=== PATIENT | female | born 1955 | race Caucasian/White ===

== ENCOUNTER 2021-05-22 19:51 | Emergency (ER) | payer OTHER ==
--- NOTE | 2021-05-22 21:16 | ERPHSYRPT ---
- History of Present Illness Time Seen by Provider: 05/22/21 20:30 Source: patient Exam Limitations: no limitations Patient Subjective Stated Complaint: pt states "My dog was getting attacked by another dog and I tried to break it up and fell on my L arm" Triage Nursing Assessment: Pt ambulatory to bed from waiting room with no difficulties. pt alert and oriented x3, pt has ecchymosis located on L upper arm from previous fall 8 days ago. Pt denies blood thinners at this time. pt denies any other injuries. Physician History: Patient is a 65-year-old female who 8 days ago was breaking up a fight between her dog and 2 large dogs when she fell injuring her left arm. She has a large ecchymotic hematoma and she has pain and limited motion and weakness in the arm. She has not sought attention to this point. Occurred: days ago (8) Method of Injury: direct blow Quality: throbbing Severity of Pain-Max: moderate Severity of Pain-Current: moderate Extremities Pain Location: arm: left Modifying Factors: Improves With: movement Allergies/Adverse Reactions: Penicillins Allergy (Mild, Verified 05/22/21 20:14) shrimp Allergy (Mild, Verified 05/22/21 20:14) Home Medications: Lisinopril 10 mg [Zestril 10 MG] 10 mg PO 05/22/21 [History] Hx Tetanus, Diphtheria Vaccination/Date Given: No Hx Influenza Vaccination/Date Given: No Hx Pneumococcal Vaccination/Date Given: No Immunizations Up to Date: No Travel Risk - International Travel Have you traveled outside of the country in past 3 weeks: No - Coronavirus Screening Are you exhibiting any of the following symptoms?: No Close contact with a COVID-19 positive Pt in past 14-21 Days: No - Vaccine Status Have you recieved a Covid-19 vaccination: No - Review of Systems Constitutional: No Fever, No Chills Eyes: No Symptoms Ears, Nose, & Throat: No Symptoms Respiratory: No Cough, No Dyspnea Cardiac: No Chest Pain, No Edema, No Syncope Abdominal/Gastrointestinal: No Abdominal Pain, No Nausea, No Vomiting, No Diarrhea Genitourinary Symptoms: No Dysuria Musculoskeletal: No Back Pain, No Neck Pain Skin: No Rash Neurological: No Dizziness, No Focal Weakness, No Sensory Changes Psychological: No Symptoms Endocrine: No Symptoms All Other Systems: Reviewed and Negative - Past Medical History Cardiac History: Hypertension Psycho-Social History: Depression - Past Surgical History Past Surgical History: Yes Female Surgical History: Section Other Surgical History: R wrist - Social History Smoking Status: Never smoker Drug Use: none - Nursing Vital Signs Nursing Vital Signs: Initial Vital Signs Temperature 97.5 F 05/22/21 20:06 Pulse Rate 78 05/22/21 20:06 Respiratory Rate 16 05/22/21 20:06 Blood Pressure 117/88 05/22/21 20:06 O2 Sat by Pulse Oximetry 96 05/22/21 20:06 Pain Scale Pain Intensity 3 - Physical Exam General Appearance: alert Eyes, Ears, Nose, Throat Exam: moist mucous membranes Neck Exam: non-tender, supple Cardiovascular/Respiratory Exam: chest non-tender, normal breath sounds, regular rate/rhythm, no respiratory distress Abdominal Exam: non-tender, No guarding Back Exam: normal inspection, No vertebral tenderness Shoulder Exam: ecchymosis (There is a large ecchymotic area over the biceps), limited ROM (Left shoulder limited range of motion), soft tissue tenderness (Soft tissue tenderness is noted over the left shoulder.), swelling Elbow/Forearm Exam: normal inspection, non-tender Wrist Exam: normal inspection, non-tender Hand Exam: normal inspection, non-tender Neuro/Tendon Exam: normal sensation, normal motor functions Mental Status Exam: alert, oriented x 3, cooperative Skin Exam: normal color, warm, dry SpO2 Interpretation: normal SpO2: 96 O2 Delivery: Room Air - Course Nursing assessment & vital signs reviewed: Yes - Radiology Exams Shoulder X-ray Interpretation: Interpreted by me (Left shoulder negative) Humerus X-ray Interpretation: Interpreted by me (Left humerus negative) Ordered Tests: Active Orders 24 hr Category Date Time Status HUMERUS Stat Exams 05/22/21 20:19 Taken SHOULDER Stat Exams 05/22/21 20:19 Taken - Progress Progress: unchanged - Departure Departure Disposition: Home Clinical Impression: Soft tissue injury of left upper arm Condition: Stable Critical Care Time: No Referrals: KATERINE ESPINOZA NP [Primary Care Provider] - Follow up/PCP as directed Instructions: Contusion (DC) Prescriptions: Diclofenac Sodium 50 mg [Voltaren 50 mg] 50 mg PO TID 7 Days #21 cap
[2021-05-22 21:32] VITALS: BP 113/82; PULSE 68; O2SAT 98
--- NOTE | 2021-05-23 09:01 | XRAY ---
Indication: Pain and bruising following injury one week ago. Comparison: None 3 view left shoulder demonstrates minimally depressed fracture involving the superior lateral humeral head. Elsewhere incidental osteopenia, mild AC degenerative arthropathy, mild left base subsegmental atelectasis/scarring, moderate size hiatal hernia, and right perihilar calcified granulomas. Comment: Humeral head fracture not reported by interpreting ER clinician. Telephone report given to Dr. Pak at 0855 hours on May 23, 2021.
--- NOTE | 2021-05-23 09:03 | XRAY ---
Indication: Pain and bruising following injury one week ago. Comparison: None 2 view left humerus demonstrates minimally depressed fracture involving the superior lateral humeral head. Elsewhere incidental osteopenia, mild AC degenerative arthropathy, and moderate size hiatal hernia. Comment: Humeral head fracture not reported by interpreting ER clinician. Telephone report given to Dr. Pak at 0855 hours on May 23, 2021.
== END 2021-05-22 21:32 | disposition home or self-care (01) ==
LOC: ED 19:51
DX: S40.022A Contusion of left upper arm, initial encounter (principal); W18.30XA Fall on same level, unspecified, initial encounter; Y93.K9 Activity, other involving animal care; I10 Essential (primary) hypertension
CPT/HCPCS: 73030; 73060; 99284

== ENCOUNTER 2022-07-06 13:52 | Emergency (ER) | payer MEDICARE ==
[2022-07-06] MEDS ORDERED: BABY ASPIRIN 81 MG CHEW PO ONE (14:13)
[2022-07-06] MEDS ORDERED: Sodium Chloride 0.9% 1000 ML 1,000 ML IV STA (14:13)
[2022-07-06] MEDS ORDERED: solu-MEDROL 125 MG, Sterile H2O 10 ml 2 ML IV ONE ×2 (14:16)
[2022-07-06] MEDS ORDERED: PROVENTIL 2.5 MG/3 ML NEB IH ONE ×2 (14:16→14:19)
[2022-07-06 14:19] LABS: Absolute Neutrophil Ct (ANC) 3.63 x10^3/uL (1.4-6.9); Basophil (Absolute #) 0 x10^3/uL (0-0.4); Eosinophil (Absolute #) 0 x10^3/uL (0-0.5); Hematocrit 39.6 % (35-47); Hemoglobin 13.8 g/dL (12.0-16.0); IMMATURE GRAN # 0.01 x10^3u/L (0.00-0.03); IMMATURE GRAN % 0.2 % (0.00-0.4); Lymphocyte (Absolute #) 1.76 x10^3/uL (1.0-4.6); Lymphocytes % 30.3 % (24.0-44.0); Mean Cell Volume 88.2 fL (78-100); Mean Corpuscular Hemoglobin 30.7 pg (26-32); Mean Corpuscular Hgb Concent. 34.8 g/dL (32-36); Mean Platelet Volume 9.2 fL (7.5-11.0); Monocytes % 6.9 % (0.0-12.0); Neutrophil % 62.6 % (36.0-66.0); Platelet Count 235 x10^3/uL (150-450); Red Blood Count 4.49 x10^6/uL (4.1-5.4); Red Cell Distribution Width 13.3 % (11.5-14.0); White Blood Count 5.8 x10^3/uL (4.0-10.5)
[2022-07-06 14:30] LABS: ISTAT K 3.2 mmol/L (3.5-4.9); ISTAT iCA 1.18 mmol/L (1.12-1.32)
[2022-07-06 14:31] LABS: ISTAT CREA 1.4 mg/dL (0.6-1.3)
[2022-07-06] MEDS ORDERED: Sodium Chloride 0.9% 1000 ML 1,000 ML ONE (15:00)
[2022-07-06] MEDS ORDERED: solu-MEDROL ONE (15:00)
[2022-07-06] MEDS ORDERED: Sterile H2O 10 ml IJ ONE (15:00)
[2022-07-06] MEDS ORDERED: Ativan 2 MG/1 ML VIAL IV ONE (15:07)
[2022-07-06] MEDS ORDERED: Ativan 2 MG/1 ML VIAL ONE (15:24)
[2022-07-06 16:16] VITALS: BP 118/70; PULSE 86
--- NOTE | 2022-07-06 16:17 | XRAY ---
CLINICAL HISTORY:SOB; COMPARISON:Prior x-ray dated 06/25/2022; TECHNIQUES:CR chest- 1 view- frontal view; FINDINGS: A stable hyperdense nodule is seen in the right lower lung zone measuring6.3 mm in size. A few more hyperdense nodules are seen in the right hilar region, possibly calcified hilar lymph nodes which appear stable in comparison with previous X-ray chest. Both lung constantino are Otherwise clear. Stable hiatal hernia is seen. Both hilar shadows appear normal. The trachea is central. Cardiac borders are well visualized. Heart size is normal. Both costophrenic angles are normal. The bony rib cage appears normal. No obvious sclerotic or lucent lesion is noted. IMPRESSION: Stable right lower lung zone nodule measuring 6.3 mm. Stable right hilar region hyperdense nodules [possibly calcified hilar lymph nodes. Advise CT of the chest for further characterization of the right lower lung zone nodule. Electronically Signed by: Bonita Bowman MD. (07/06/2022 13:49:53 RACING SECRETARY)
[2022-07-06 17:13] VITALS: O2SAT 93
--- NOTE | 2022-07-06 17:21 | ERPHSYRPT ---
- History of Present Illness Time Seen by Provider: 07/06/22 13:58 Source: patient Exam Limitations: no limitations Patient Subjective Stated Complaint: pt here for chest pain and sob off and on for a couple weeks now, was seen by family and started on cholesteral meds, has pressure to left side of chest Triage Nursing Assessment: pt alert, resp easy easy , anxious at times, skin w/d/p. no edema noted , chest clear Physician History: Patient is here with intermittent chest pain for several weeks. [place] that it w as worse today. Patient is cardiology follow-up next week. Patient states it was associated with shortness of breath. No falls no trauma. Patient states this started earlier today, progressed. Patient called 911 from her house. Patient does believe there might be a component of anxiety to this. States that she did get very worked up when her pain initially started with shortness of breath. However, her PCP has scheduled her for cardiology outpatient follow-up shortly Allergies/Adverse Reactions: Penicillins Allergy (Mild, Verified 07/06/22 13:58) shrimp Allergy (Mild, Verified 07/06/22 13:58) Home Medications: Lisinopril 10 mg [Zestril 10 MG] 10 mg PO DAILY 05/22/21 [History] Albuterol Sulfate 1 ea BID 07/06/22 [History] Atorvastatin Calcium 10 mg PO DAILY 07/06/22 [History] Nebulizer and Compressor [Innospire Essence Compress Neb] 1 ea BID 07/06/22 [History] Venlafaxine HCl [Venlafaxine HCl ER] 1 ea DAILY 07/06/22 [History] Hx Tetanus, Diphtheria Vaccination/Date Given: No Hx Influenza Vaccination/Date Given: No Hx Pneumococcal Vaccination/Date Given: No Immunizations Up to Date: Yes Travel Risk - International Travel Have you traveled outside of the country in past 3 weeks: No - Coronavirus Screening Are you exhibiting any of the following symptoms?: No Close contact with a COVID-19 positive Pt in past 14-21 Days: No - Vaccine Status Have you recieved a Covid-19 vaccination: No - Review of Systems Constitutional: No Fever, No Chills Eyes: No Symptoms Ears, Nose, & Throat: No Symptoms Respiratory: Dyspnea, No Cough Cardiac: Chest Pain, No Edema, No Syncope Abdominal/Gastrointestinal: No Abdominal Pain, No Nausea, No Vomiting, No Diarrhea Genitourinary Symptoms: No Dysuria Musculoskeletal: No Back Pain, No Neck Pain Skin: No Rash Neurological: No Dizziness, No Focal Weakness, No Sensory Changes Psychological: No Symptoms Endocrine: No Symptoms All Other Systems: Reviewed and Negative - Past Medical History Cardiac History: High Cholesterol, Hypertension Psycho-Social History: Depression - Past Surgical History Past Surgical History: Yes Gastrointestinal: Other Female Surgical History: Section Other Surgical History: R wrist,bladder surg - Social History Smoking Status: Never smoker Exposure to second hand smoke: No Drug Use: none Patient Lives Alone: No - Nursing Vital Signs Nursing Vital Signs: Initial Vital Signs Temperature 97.2 F 07/06/22 13:53 Pulse Rate 82 07/06/22 13:53 Respiratory Rate 22 07/06/22 13:53 Blood Pressure 129/81 07/06/22 13:53 O2 Sat by Pulse Oximetry 95 07/06/22 13:53 Pain Scale Pain Intensity 2 - Physical Exam General Appearance: no apparent distress, alert Eye Exam: PERRL/EOMI, eyes nml inspection Ears, Nose, Throat Exam: normal ENT inspection, TMs normal, pharynx normal, moist mucous membranes Neck Exam: normal inspection, non-tender, supple, full range of motion Respiratory Exam: normal breath sounds, lungs clear, No respiratory distress Cardiovascular Exam: regular rate/rhythm, normal heart sounds, normal peripheral pulses Gastrointestinal/Abdomen Exam: soft, normal bowel sounds, No tenderness, No mass Back Exam: normal inspection, normal range of motion, No CVA tenderness, No ve rtebral tenderness Extremity Exam: normal inspection, normal range of motion, pelvis stable Neurologic Exam: alert, oriented x 3, cooperative, normal mood/affect, nml cerebellar function, nml station & gait, sensation nml, No motor deficits Skin Exam: normal color, warm, dry, No rash Lymphatic Exam: No adenopathy SpO2: 93 - Course Nursing assessment & vital signs reviewed: Yes EKG Interpreted by Me: Sinus Rhythm (Sinus rhythm, no ST changes, other EKG changes) Ordered Tests: Active Orders 24 hr Category Date Time Status Refinery Operator Light Ends Recovery STAT Care 07/06/22 14:13 Completed EKG-ER Only STAT Care 07/06/22 14:13 Completed IV Insertion STAT Care 07/06/22 14:13 Completed CHEST 1 VIEW (PORTABLE) Stat Exams 07/06/22 14:13 Completed CBC W DIFF Stat Lab 07/06/22 14:16 Completed D-DIMER QUANTITATIVE Stat Lab 07/06/22 14:16 Completed NT PRO BNPII Stat Lab 07/06/22 14:16 Completed TROPONIN Q4H Lab 07/06/22 16:33 Completed Respiratory Therapy Assessment DAILY RT 07/06/22 14:26 Completed Medication Summary Discontinued Medications Generic Name Dose Route Start Last Admin Trade Name Freq PRN Reason Stop Dose Admin Albuterol Sulfate 2.5 mg 07/06/22 14:16 07/06/22 14:20 Albuterol Sulfate 2.5 Mg/3 Ml Neb IH 07/06/22 14:17 2.5 mg STAT ONE Administration Albuterol Sulfate Confirm 07/06/22 14:19 Albuterol Sulfate 2.5 Mg/3 Ml Neb Administered 07/06/22 14:20 Dose 2.5 mg IH .STK-MED ONE Aspirin 324 mg 07/06/22 14:13 07/06/22 14:51 Aspirin 81 Mg Tab.Chew PO 07/06/22 14:14 Not Given STAT ONE Methylprednisolone Sodium 0 mg 07/06/22 14:16 07/06/22 15:54 Succinate 125 mg/ Sterile IV 07/06/22 14:17 125 mg Water 2 ml STAT ONE Administration Sodium Chloride 1,000 mls @ 999 mls/hr 07/06/22 14:13 07/06/22 17:04 Sodium Chloride 0.9% 1000 Ml IV 07/06/22 15:13 Infused .Q1H1M STA Infusion Sodium Chloride Confirm 07/06/22 15:00 Sodium Chloride 0.9% 1000 Ml Administered 07/06/22 15:01 Dose 1,000 mls @ ud .ROUTE .STK-MED ONE Lorazepam 0.5 mg 07/06/22 15:07 07/06/22 15:54 Lorazepam 2 Mg/1 Ml 2 Mg Vial IV 07/06/22 15:08 0.5 mg STAT ONE Administration Lorazepam Confirm 07/06/22 15:24 Lorazepam 2 Mg/1 Ml 2 Mg Vial Administered 07/06/22 15:25 Dose 2 mg .ROUTE .STK-MED ONE Methylprednisolone Sodium Succinate Confirm 07/06/22 15:00 Methylprednis Sod Succ 125 Mg/2 Ml Vial Administered 05/05/23 15:01 Dose 125 mg .ROUTE .[employer] ONE Sterile Water Confirm 07/06/22 15:00 Water For Injection,Sterile 10 Ml Vial Administered 07/06/22 15:01 Dose 10 ml IJ .[employer] [facility] ONE Lab/Rad Data: Laboratory Result Diagrams 07/06/22 14:16 07/06/22 14:16 Laboratory Results 07/06/22 07/06/22 07/06/22 Range/Units 16:33 14:16 14:16 WBC (4.0-10.5) x10^3/uL RBC (4.1-5.4) x10^6/uL Hgb (12.0-16.0) g/dL Hct (35-47) % MCV (78-100) fL MCH (26-32) pg MCHC (32-36) g/dL RDW (11.5-14.0) % Plt Count (150-450) x10^3/uL MPV (7.5-11.0) fL Gran % (36.0-66.0) % Immature Gran % (Auto) (0.00-0.4) % Nucleat RBC Rel Count (0.00-0.1) % Eos # (Auto) (0-0.5) x10^3/uL Immature Gran # (Auto) (0.00-0.03) x10^3u/L Absolute Lymphs (auto) (1.0-4.6) x10^3/uL Absolute Monos (auto) (0.0-1.3) x10^3/uL Absolute Nucleated RBC (0.00-0.01) x10^3u/L Lymphocytes % (24.0-44.0) % Monocytes % (0.0-12.0) % Eosinophils % (0.00-5.0) % Basophils % (0.0-0.4) % Absolute Granulocytes (1.4-6.9) x10^3/uL Basophils # (0-0.4) x10^3/uL D-Dimer 0.19 (0.0-0.50) mg/L Sodium Sodium Direct (138-146) mmol/L Potassium (3.5-4.9) mmol/L Chloride (98-109) mmol/L Carbon Dioxide (24-29) mmol/L Anion Gap BUN Venous BUN (8-26) mg/dL Creatinine (0.6-1.3) mg/dL Estimated GFR Glucose (70-105) mg/dL Calcium Ionized Calcium (1.12-1.32) mmol/L Total Bilirubin AST ALT Alkaline Phosphatase Troponin (0.00-0.03) ng/mL Troponin I < 0.012 (0.000-0.034) ng/mL NT-Pro-B Natriuret Pep 31.4 (<300) pg/mL Serum Total Protein Albumin 07/06/22 07/06/22 Range/Units 14:16 14:16 WBC 5.8 (4.0-10.5) x10^3/uL RBC 4.49 (4.1-5.4) x10^6/uL Hgb 13.8 (12.0-16.0) g/dL Hct 39.6 (35-47) % MCV 88.2 (78-100) fL MCH 30.7 (26-32) pg MCHC 34.8 (32-36) g/dL RDW 13.3 (11.5-14.0) % Plt Count 235 (150-450) x10^3/uL MPV 9.2 (7.5-11.0) fL Gran % 62.6 (36.0-66.0) % Immature Gran % (Auto) 0.2 (0.00-0.4) % Nucleat RBC Rel Count 0.0 (0.00-0.1) % Eos # (Auto) 0 (0-0.5) x10^3/uL Immature Gran # (Auto) 0.01 (0.00-0.03) x10^3u/L Absolute Lymphs (auto) 1.76 (1.0-4.6) x10^3/uL Absolute Monos (auto) 0.40 (0.0-1.3) x10^3/uL Absolute Nucleated RBC 0.00 (0.00-0.01) x10^3u/L Lymphocytes % 30.3 (24.0-44.0) % Monocytes % 6.9 (0.0-12.0) % Eosinophils % 0.0 (0.00-5.0) % Basophils % 0.0 (0.0-0.4) % Absolute Granulocytes 3.63 (1.4-6.9) x10^3/uL Basophils # 0 (0-0.4) x10^3/uL D-Dimer (0.0-0.50) mg/L Sodium Cancelled Sodium Direct 141 (138-146) mmol/L Potassium 3.2 L (3.5-4.9) mmol/L Chloride 104 (98-109) mmol/L Carbon Dioxide 27 (24-29) mmol/L Anion Gap Cancelled BUN Cancelled Venous BUN 27 H (8-26) mg/dL Creatinine 1.4 H (0.6-1.3) mg/dL Estimated GFR Cancelled Glucose 105 (70-105) mg/dL Calcium Cancelled Ionized Calcium 1.18 (1.12-1.32) mmol/L Total Bilirubin Cancelled AST Cancelled ALT Cancelled Alkaline Phosphatase Cancelled Troponin 0.00 (0.00-0.03) ng/mL Troponin I (0.000-0.034) ng/mL NT-Pro-B Natriuret Pep (<300) pg/mL Serum Total Protein Cancelled Albumin Cancelled - Progress Progress: improved Progress Note: 07/06/22 20:05 differential diagnosis includes: PNA, STEMI, NSTEMI, other infection, musculoskeletal pain, pneumothorax - We'll obtain basic labs, fluids, EKG, troponin, chest x-ray - Patient had 2 negative cardiac troponins over course of emergency department stay - EKG shows no ST changes - my read. See full read below. - O2 saturations consistently greater than 95%. - CXR shows no pneumonia, pneumothorax - my read - no other obvious lab abnormalities Patient overall feels and looks better. Given 2 negative cardiac markers less likely to be ACS today. However, I will encourage her to follow-up with cardiology closely. Patient states that she would like to be discharged home. I did encourage her to return here sooner for any new or changing symptoms. Patient states understanding will follow-up as described Counseled pt/family regarding: lab results, diagnosis, need for follow-up, rad results Medical Desision Making - Diagnostic Testing Diagnostic test were ordered, analyzed, and reviewed by me: Yes Radiological Interpretation: Interpreted by me - Departure Departure Disposition: Home Clinical Impression: Shortness of breath Condition: Stable Critical Care Time: No Referrals: ALEXIS,KATERINE LIDA, DIRECTOR FACILITIES MAINTENANCE [Primary Care Provider] - Follow up/PCP as directed Instructions: Shortness of Breath (Dyspnea) (DC) Prescriptions: Prednisone 10 mg [Deltasone 10 mg] 40 mg PO DAILY 5 Days #100 tablet
== END 2022-07-06 17:41 | disposition home or self-care (01) ==
LOC: ED 13:52
DX: R06.02 Shortness of breath (principal); R07.9 Chest pain, unspecified; E78.5 Hyperlipidemia, unspecified; I10 Essential (primary) hypertension; Z79.52 Long term (current) use of systemic steroids; Z79.899 Other long term (current) drug therapy; Z28.310 Unvaccinated for COVID-19
CPT/HCPCS: 36000; 36415; 71045; 80047; 83880; 84484; 85025; 85379; 93005; 93041; 94640; 96360; 96374; 96375; 99284; J2060; J2930; J7609; A9270-GY

== ENCOUNTER 2024-07-10 21:06 | Emergency (ER) | payer MEDICARE ==
[2024-07-10 21:20] VITALS: RESP 20; TEMP 97.4
--- NOTE | 2024-07-10 21:40 | ERPHSYRPT ---
- History of Present Illness Source: patient Exam Limitations: no limitations Patient Subjective Stated Complaint: pt reports fall from standing one week ago- reports right rib pain since that time that at one time got better but is worse again today. reports pain is worse with movement and inspiration. pt also reports getting a massage today that possibly made it worse Triage Nursing Assessment: pt is aox3, pupils perrl, afebrile, resps easy and non labored, cap refill < 3 sec, radial pulses strong and equal pt skin pink warm dry. kyphosis noted to the upper back. no obvious injury noted. Physician History: Patient fell about a week and a half ago. She landed on her right side. She has had right lower rib pain. It is more anterior than lateral. Movement makes it worse palpation makes it worse deep breaths makes it worse coughing makes it worse.She is not having any shortness of breath. She has no other trauma or pain. She does not have any abdominal pain. Method of Injury: fall Occurred: last week Allergies/Adverse Reactions: Penicillins Allergy (Mild, Verified 07/10/24 21:20) shrimp Allergy (Mild, Verified 07/10/24 21:20) Home Medications: Lisinopril 10 mg [Zestril 10 MG] 10 mg PO DAILY 05/22/21 [History] Albuterol Sulfate 1 ea BID 07/06/22 [History] Atorvastatin Calcium 10 mg PO DAILY 07/06/22 [History] Nebulizer and Compressor [Innospire Essence Compress Neb] 1 ea BID 07/06/22 [History] Venlafaxine HCl [Venlafaxine HCl ER] 1 ea DAILY 07/06/22 [History] Hx Tetanus, Diphtheria Vaccination/Date Given: No Hx Influenza Vaccination/Date Given: No Hx Pneumococcal Vaccination/Date Given: No Immunizations Up to Date: No Travel Risk - International Travel Have you traveled outside of the country in past 3 weeks: No - Emerging Infectious Disease Are you exhibiting symptoms associated with any current EIDs: No - Review of Systems Constitutional: No Symptoms Eyes: No Symptoms Respiratory: No Symptoms Cardiac: No Symptoms Abdominal/Gastrointestinal: No Symptoms Genitourinary Symptoms: No Symptoms Musculoskeletal: No Symptoms Skin: No Symptoms All Other Systems: Reviewed and Negative - Past Medical History Cardiac History: High Cholesterol, Hypertension Psycho-Social History: Depression Other Medical History: kyphosis - Past Surgical History Past Surgical History: Yes Gastrointestinal: Cholecystectomy, Other Female Surgical History: Section Other Surgical History: R wrist,bladder surg - Social History Smoking Status: Never smoker Exposure to second hand smoke: No Drug Use: none - Social Determinants of Health Will the patient participate in the screening: Yes Do you worry about a steady place to live?: No Do you have any problems with any of the following?: No known problems In the past 12 months,have you had to go without utilities?: No Transportation Issues: No Has anyone in your support network made you feel unsafe?: No Have you or anyone in your house had to go w/o enough food: No Physical Exam - Nursing Vital Signs Nursing Vital Signs: Initial Vital Signs Temperature 97.4 F 07/10/24 21:12 Pulse Rate 81 07/10/24 21:12 Respiratory Rate 20 07/10/24 21:12 Blood Pressure 127/76 07/10/24 21:12 O2 Sat by Pulse Oximetry 98 07/10/24 21:12 Pain Scale Pain Intensity 10 - Edon Coma Score Best Eye Response (Lina): (4) open spontaneously Best Verbal Response (Edon): (5) oriented Best Motor Response (Lina): (6) obeys commands Edon Total: 15 - Physical Exam General Appearance: no apparent distress Head Injury: no evidence of injury Respiratory/Chest Exam: chest tenderness, normal breath sounds, other (Tenderness in the left anterior ribs.Chest exam was clear) Cardiovascular Exam: normal heart sounds, regular rate/rhythm Back Exam: normal inspection Extremity Exam: normal inspection SpO2: 98 Ordered Tests: Active Orders 24 hr Category Date Time Status RIBS UNILATERAL W/ PA CXR Stat Exams 07/10/24 21:39 Taken - Progress Progress Note: On the differential was rib contusion and rib fracture. I got a rib film. I independently interpreted it. I did not see any fractures. I think is just a rib contusion. I wanted discharged her to home in stable condition. 07/10/24 22:21 - Departure Clinical Impression: Rib contusion Condition: Stable Critical Care Time: No Referrals: KATERINE ESPINOZA NP [Primary Care Provider, [facility]] - Follow up/PCP as directed Instructions: Bruised Rib
[2024-07-10 22:07] VITALS: BP 106/63; PULSE 83
[2024-07-10 22:23] VITALS: O2SAT 98
--- NOTE | 2024-07-10 22:26 | XRAY ---
Indication: Left rib pain following fall week ago. Comparison: None 2 view left ribs demonstrates osteopenia without acute fracture or suspicious bony lesions. Single PA chest inflated and clear with right lung calcified granuloma. Heart not enlarged with large hiatal hernia with intrathoracic stomach. Remaining bony thorax intact with minimal double curvature thoracal lumbar scoliosis. Impression: Nonacute left ribs with PA chest. Incidental chronic findings.
[2024-07-10] MEDS ORDERED: NORCO 5/325 MG ONE (22:27)
[2024-07-10] MEDS: NORCO 5/325 MG PO ONE (22:28)
== END 2024-07-10 22:34 | disposition home or self-care (01) ==
LOC: ED 21:06
DX: S20.212A Contusion of left front wall of thorax, initial encounter (principal); W18.39XA Other fall on same level, initial encounter; Z79.891 Long term (current) use of opiate analgesic; Z79.899 Other long term (current) drug therapy
CPT/HCPCS: 71101; 99282; 99283; A9270-GY